=== PATIENT | female | born 1985 | race American Indian/Alaskan Native ===

== ENCOUNTER 2019-01-02 16:18 | Emergency (ER) | payer BC, MEDICAID ==
[2019-01-02 17:08] VITALS: BP 145/95
--- NOTE | 2019-01-02 17:10 | Event Note ---
ED Screening Note Date of service: 01/02/19 Time: 17:06 ED Screening Note: Pt complains of urinary frequency and back pain x 5 days. +chills. Also complains of migraine No abdominal pain noted on exam minimal bilateral CVA tenderness This initial assessment/diagnostic orders/clinical plan/treatment(s) is/are subject to change based on patients health status, clinical progression and re- assessment by fellow clinical providers in the ED. Further treatment and workup at subsequent clinical providers discretion. Patient/guardian urged not to elope from the ED as their condition may be serious if not clinically assessed and managed. Initial orders include: labs
[2019-01-02 17:36] LABS: Bacteria,Urine 4+ /HPF (Negative); Bilirubin,Urine NEG (Negative); Blood,Urine MOD (Negative); Color,Urine Yellow (Yellow); Protein,Urine <15 mg/dL mg/dL (Negative); Urobilinogen,Urine < 2.0 mg/dL (<2.0)
[2019-01-02 18:02] LABS: HCG Qualitative,Urine Negative (Negative)
[2019-01-02 18:24] LABS: BUN/Creatinine Ratio 17; Blood Urea Nitrogen 10 mg/dL (7-17); Hemolysis Index 4
[2019-01-02 18:27] LABS: Basophils % (Auto) 0.6 % (0.0-1.8); Eosinophils # (Auto) 0.1 K/mm3 (0.0-0.4); Eosinophils % (Auto) 2.1 % (0.0-4.3); Hemoglobin 12.6 gm/dl (10.1-14.3); Lymphocytes # (Auto) 1.5 K/mm3 (1.2-5.4); Lymphocytes % (Auto) 25.1 % (13.4-35.0); Mean Corpuscular HGB Conc 34 % (30-34); Mean Corpuscular Volume 87 fl (79-97); Monocytes # (Auto) 0.3 K/mm3 (0.0-0.8); Monocytes % (Auto) 5.6 % (0.0-7.3); Red Blood Count 4.23 M/mm3 (3.65-5.03); Red Cell Distribution Width 14.1 % (13.2-15.2)
[2019-01-02 18:28] LABS: Platelet Count 275 K/mm3 (140-440)
[2019-01-02] MEDS ORDERED: ULTRAM PO ONE (22:02)
[2019-01-02] MEDS ORDERED: BENADRYL PO ONE (22:02)
[2019-01-02] MEDS ORDERED: REGLAN PO ONE (22:02)
--- NOTE | 2019-01-02 22:08 | Emergency Department Report ---
ED Female HPI - General Chief complaint: Abdominal Pain Stated complaint: POSS BLADDER INFECTION/FEVER/MIGRAINE/BACK PAIN Time Seen by Provider: 01/02/19 21:17 Source: patient Mode of arrival: Ambulatory Limitations: No Limitations - History of Present Illness Initial comments: Pt is a 33 y/o aaf who complains of urinary frequency and back pain x 5 days. +chills, no fever no n/c no vaginal discharge. states symptoms have triggered migraine headache which is usual if she gets UTI. There is no abdominal pain. pain is 3/10 radiating from bilat flank radiates to superpubic , there is no hematuria no flow problem , no hx of renal stones. MD Complaint: dysuria Onset/Timin -: days(s) Location: suprapubic Radiation: suprapubic Severity: moderate Severity scale (0 -10): 3 Quality: burning, aching Consistency: intermittent Improves with: none Worsens with: urination Are you Now?: No Last Menstrual Period: 12/06/18 EDC: 09/12/19 Associated Symptoms: fever/chills, headaches, dysuria. denies: vaginal discharge, vaginal bleeding, abdominal pain, nausea/vomiting, loss of appetite, hematuria, rash, weakness - Related Data Sexually active: Yes Previous Rx's Medication Instructions Recorded Last Taken Type Vit No.130/Iron/Folic 1 each PO QDAY #30 tablet 02/02/16 Unknown Rx [ Tablet] Fluconazole [Diflucan TAB] 150 mg PO ONCE #1 tablet 01/02/19 Unknown Rx Ibuprofen [Motrin 800 MG tab] 800 mg PO Q8HR PRN #30 tablet 01/02/19 Unknown Rx cephALEXin [Keflex] 500 mg PO Q8H #30 capsule 01/02/19 Unknown Rx diphenhydrAMINE [Benadryl CAP] 25 mg PO Q8HR PRN #30 capsule 01/02/19 Unknown Rx Allergies Allergy/AdvReac Type Severity Reaction Status Date / Time codeine Allergy Headache Verified 01/02/19 16:33 latex Allergy Itching Verified 01/02/19 16:33 ED Review of Systems ROS: Stated complaint: POSS BLADDER INFECTION/FEVER/MIGRAINE/BACK PAIN Other details as noted in HPI Constitutional: denies: chills, fever Eyes: denies: eye pain, eye discharge, vision change ENT: denies: ear pain, throat pain Respiratory: denies: cough, shortness of breath, wheezing Cardiovascular: denies: chest pain, palpitations Endocrine: no symptoms reported Gastrointestinal: denies: abdominal pain, nausea, diarrhea Genitourinary: urgency, dysuria, frequency. denies: hematuria, discharge, dyspareunia Musculoskeletal: back pain Skin: denies: rash, lesions Neurological: denies: headache, weakness, paresthesias Psychiatric: denies: anxiety, depression Hematological/Lymphatic: denies: easy bleeding, easy bruising ED Past Medical Hx - Social History Smoking Status: Never Smoker Substance Use Type: Alcohol - Medications Home Medications: Home Medications Medication Instructions Recorded Confirmed Last Taken Type Vit No.130/Iron/Folic 1 each PO QDAY #30 tablet 02/02/16 Unknown Rx [ Tablet] Fluconazole [Diflucan TAB] 150 mg PO ONCE #1 tablet 01/02/19 Unknown Rx Ibuprofen [Motrin 800 MG tab] 800 mg PO Q8HR PRN #30 tablet 01/02/19 Unknown Rx cephALEXin [Keflex] 500 mg PO Q8H #30 capsule 01/02/19 Unknown Rx diphenhydrAMINE [Benadryl CAP] 25 mg PO Q8HR PRN #30 capsule 01/02/19 Unknown Rx ED Physical Exam - General Limitations: No Limitations General appearance: alert, in no apparent distress - Head Head exam: Present: atraumatic, normocephalic - Eye Eye exam: Present: normal appearance, PERRL, EOMI Pupils: Present: normal accommodation - ENT ENT exam: Present: mucous membranes moist - Neck Neck exam: Present: normal inspection, full ROM. Absent: tenderness, lymphadenopathy - Respiratory Respiratory exam: Present: normal lung sounds bilaterally. Absent: respiratory distress, wheezes, stridor, chest wall tenderness - Cardiovascular Cardiovascular Exam: Present: regular rate, normal rhythm, normal heart sounds. Absent: systolic murmur, diastolic murmur, rubs, gallop - GI/Abdominal GI/Abdominal exam: Present: soft, normal bowel sounds. Absent: distended, tenderness, guarding, rebound, rigid, bruit, hernia - Rectal Rectal exam: Present: deferred - External exam: Present: other (deferred) - Extremities Exam Extremities exam: Present: normal inspection, full ROM, normal capillary refill. Absent: tenderness, pedal edema - Back Exam Back exam: Present: normal inspection, full ROM, tenderness, CVA tenderness (R), CVA tenderness (L). Absent: muscle spasm, paraspinal tenderness, rash noted - Neurological Exam Neurological exam: Present: alert, oriented X3, CN II-XII intact, normal gait, reflexes normal. Absent: motor sensory deficit - Psychiatric Psychiatric exam: Present: normal affect, normal mood - Skin Skin exam: Present: warm, dry, intact, normal color. Absent: rash ED Course Vital Signs 01/02/19 17:06 Temperature 98.3 F Pulse Rate 89 Respiratory 16 Rate Blood Pressure 145/95 O2 Sat by Pulse 100 Oximetry ED Medical Decision Making - Lab Data Result diagrams: 01/02/19 17:42 01/02/19 17:42 Labs 01/02/19 01/02/19 01/02/19 17:00 17:42 17:42 WBC 6.1 RBC 4.23 Hgb 12.6 Hct 37.0 MCV 87 MCH 30 MCHC 34 RDW 14.1 Plt Count 275 Lymph % (Auto) 25.1 [place] % (Auto) 5.6 Eos % (Auto) 2.1 Baso % (Auto) 0.6 Lymph # 1.5 [place] # 0.3 Eos # 0.1 Baso # 0.0 Seg Neutrophils % 66.6 Seg Neutrophils # 4.0 Sodium 140 Potassium 4.0 Chloride 102.4 Carbon Dioxide 23 Anion Gap 19 BUN 10 Creatinine 0.6 L Estimated GFR > 60 BUN/Creatinine Ratio 17 Glucose 133 H Calcium 9.0 Urine Color Yellow Urine Turbidity Slightly-cloudy Urine pH 7.0 Ur Specific [place] 1.008 Urine Protein <15 mg/dl Urine Glucose (UA) Neg Urine Ketones Neg Urine Blood Mod Urine Nitrite Neg Urine Bilirubin Neg Urine Urobilinogen < 2.0 Ur Leukocyte Esterase Mod Urine WBC (Auto) 6.0 Urine RBC (Auto) 3.0 U Epithel Cells (Auto) 8.0 Urine Bacteria (Auto) 4+ Urine HCG, Qual Negative - Medical Decision Making this is a UTI, Ua pos leuk, wbc, bacteria, pt now advise sore throat pain , tonsils: moderate erythem with exudate, plan: Keflex 500 mg po tid, ibuprofen, benadryl pt will follow up wih pcp in 2-3 days will return to ed if symptoms worsen. Critical care attestation.: If time is entered above; I have spent that time in minutes in the direct care of this critically ill patient, excluding procedure time. ED Disposition Clinical Impression: UTI (urinary tract infection) Qualifiers: Urinary tract infection type: acute cystitis Hematuria presence: without hematuria Qualified Code(s): N30.00 - Acute cystitis without hematuria Pharyngitis Qualifiers: Pharyngitis/tonsillitis etiology: unspecified etiology Qualified Code(s): J02.9 - Acute pharyngitis, unspecified Headache Qualifiers: Headache type: unspecified Headache chronicity pattern: acute headache Intractability: not intractable Qualified Code(s): R51 - Headache Disposition: DC- TO HOME OR SELFCARE Is pt being admited?: No Does the pt Need Aspirin: No Condition: Stable Instructions: Abdominal Pain (ED), Urinary Tract Infection in Women (ED), Acute Headache (ED) Prescriptions: diphenhydrAMINE [Benadryl CAP] 25 mg PO Q8HR PRN #30 capsule PRN Reason: headache Fluconazole [Diflucan TAB] 150 mg PO ONCE #1 tablet cephALEXin [Keflex] 500 mg PO Q8H #30 capsule Ibuprofen [Motrin 800 MG tab] 800 mg PO Q8HR PRN #30 tablet PRN Reason: pain fever Referrals: CAM HILL MD [Staff Physician] - 3-5 Days Forms: Work/School Release Form(ED) Time of Disposition: 22:18
== END 2019-01-02 22:38 | disposition home or self-care (01) ==
LOC: ED 16:18
DX: N39.0 Urinary tract infection, site not specified (principal); J02.9 Acute pharyngitis, unspecified; R51 Headache; Z79.899 Other long term (current) drug therapy
CPT/HCPCS: 36415; 80048; 81001; 81025; 85025; 99282